=== PATIENT | male | born 1985 | race Caucasian/White ===

== ENCOUNTER 2017-03-31 09:32 | Day surgery (SDC) | payer BC ==
[2017-03-30 17:04] VITALS: BMI 23.6
--- NOTE | 2017-03-31 05:34 | HP ---
SHORT-STAY HISTORY AND PHYSICAL NOTE DATE OF ADMISSION: 03/31/2017 HISTORY OF PRESENT ILLNESS: This is a 31-year-old male with dysphagia to solid food off a nd on. The dysphagia occurs only to solid food. He has had 2 episodes of food impaction. He very seldom has acid reflux. The patient comes for an EGD because of dysphagia. ALLERGIES: None. MEDICAL ILLNESS: 1. IBS. 2. Acid reflux. PHYSICAL EXAMINATION: VITAL SIGNS: Pulse is 70 and blood pressure 110/70. HEENT: Conjunctivae are clear. CARDIOVASCULAR SYSTEM: First and second heart sounds are normal. LUNGS: Clear to auscultation. ABDOMEN: Soft to palpate. No organomegaly. No tenderness. No masses. ADMITTING DIAGNOSIS: A 31-year-old male with dysphagia. PLAN: EGD and dilation.
[2017-03-31] MEDS ORDERED: PHENYLEPHRINE-NS 100 MCG/ML 10 ML SYRINGE ONE (11:57)
[2017-03-31] MEDS ORDERED: Propofol 200 MG/20 ML VIAL ONE (11:57)
--- NOTE | 2017-03-31 13:45 | OP ---
DATE OF PROCEDURE: 03/31/2017 SURGEON: Lizbeth Eugene M.D. OPERATIVE PROCEDURE: 1. Esophagogastroduodenoscopy with biopsy. 2. Esophageal dilatation with Saleh 50-Turkish in diameter. PREOPERATIVE DIAGNOSIS: Dysphagia. POSTOPERATIVE DIAGNOSES: 1. Diffuse whitish coating of the mucosa from upper esophagus all the way to the GE junction. 2. Antral gastritis. 3. Duodenitis. 4. No definite esophageal narrowing seen. 5. Empiric dilation done with 50-Turkish Saleh dilators. PROCEDURE IN DETAIL: The patient was placed on his left lateral position and was given sedation by the Anesthesia Department. A Pentax video gastroscope under direct vision was passed down the oropharynx, past the GE junction, into the stomach. The patient had diffuse coating of the mucosa with some whitish coating. Biopsies obtained from the area. The GE junction, no pathology seen. The fundus, cardia, gastric body, no lesions seen. The gastric antrum showed edematous and erythematous mucosa. The duodenal bulb showed duodenitis. The descending duodenum, no pathology seen. Biopsy of the gastric antrum and gastric body. The scope removed. Empiric dilation done with 50-Turkish Saleh dilators. The scope passed down with no resistance. DISCHARGE PLANNING: This is a 31-year-old male who came in for an EGD because of dysphagia. EGD showed antral gastritis, duodenitis and also whitish coating on the esophageal mucosa. DISCHARGE RECOMMENDATIONS: 1. The patient was advised to call me if he develops any chest pain, hematemesis, melena. 2. He is already on Omeprazole. [facility]
== END 2017-03-31 13:10 | disposition home or self-care (01) ==
LOC: SDC 09:32
PROVIDERS: ATTEND Internal Medicine Gastroenterology
PROC: 0DB58ZX Excision of Esophagus, Via Natural or Artificial Opening Endoscopic, Diagnostic (ICD-10-PCS; principal; 2017-03-31)
PROC: 0DB68ZX Excision of Stomach, Via Natural or Artificial Opening Endoscopic, Diagnostic (ICD-10-PCS; principal; 2017-03-31)
PROC: 0D758ZZ Dilation of Esophagus, Via Natural or Artificial Opening Endoscopic (ICD-10-PCS; principal; 2017-03-31)
DX: K21.0 Gastro-esophageal reflux disease with esophagitis (principal); K29.50 Unspecified chronic gastritis without bleeding; K58.9 Irritable bowel syndrome, unspecified
CPT/HCPCS: 88305; 88312; 88313; J2704